=== PATIENT | male | born 1955 | race Caucasian/White ===

== ENCOUNTER 2025-02-09 08:08 | Day surgery (SDC) | payer OTHER, SELFPAY ==
[2025-02-01 07:19] VITALS: BMI 41.2
[2025-02-01 07:54] LABS: INR 1.13; PT 14.8 Sec (11.4-14.6)
[2025-02-01 08:02] LABS: Hematocrit 44.5 % (39.0-52.0); Hemoglobin 15.2 g/dL (13.0-18.0); Mean Corp Hgb Conc. 34.2 g/dL (33.0-37.0); Mean Corpuscular Volume 85.6 fL (80.0-94.0); Nucleated Red Blood Cells % 0 % (-); Platelet Count 175 10^3/uL (130-400); Red Cell Dist. Width 13.7 % (11.5-14.5)
[2025-02-01 08:16] LABS: ALT (SGPT) 21 U/L (0-50); AST (SGOT) 19 U/L (17-59); Albumin 4.7 g/dl (3.5-5.0); Alkaline Phosphatase 60 U/L (38-126); Blood Urea Nitrogen 21 mg/dl (9-20); Calcium 9.6 mg/dl (8.4-10.2); Carbon Dioxide 29 mmol/L (22-30); Chloride 104 mmol/L (98-107); Estimated Creatinine Clearance 85 ml/min; Glucose 111 mg/dl (70-99); Magnesium 2.2 mg/dl (1.6-2.3); Potassium 4.0 mmol/L (3.5-5.1); Sodium 140 mmol/L (135-145); Total Protein 7.6 g/dl (6.3-8.2); eGFR > 60.00
--- NOTE | 2025-02-01 08:50 | HPS.HSE ---
Family Physician
-
Family Physician: Celestino Montgomery, DO
Chief Complaint
-
Persistent atrial fibrillation.
History of Present Illness
The patient is a 69 year old morbidly obese, male presenting today for persistent atrial fibrillation. He does report a history of exertional shortness of breath, fatigue, and palpitations secondary to this diagnosis. He previously
underwent a cardioversion in July and August of this year. Unfortunately, his arrhythmia returned soon after these procedures. He is on current pharmacological therapy with Metoprolol Succinate. He does report compliance with Eliquis for oral
anticoagulation due to a [id number] of 3. He is interested in pursuing pulmonary vein isolation for more definitive arrhythmia management. He denies any complaints today such as chest pain, shortness of breath at rest, nausea, vomiting, diarrhea,
lightheadedness, dizziness, cough, sore throat, or fever.
Medical History
Past Medical History
Past Medical History: Reports Other
Additional Past Medical History:
1. Persistent atrial fibrillation, status post cardioversion 07/2024 and 08/2024; pharmacological therapy with Metoprolol Succinate and oral anticoagulation with Eliquis.
2. Labile hypertension.
3. Dyslipidemia.
4. Congestive heart failure, preserved ejection fraction.
5. Venous varicosities.
6. Mild-moderate aortic stenosis.
7. Moderate mitral regurgitation.
8. Obstructive sleep apnea, compliant with CPAP.
9. GERD.
10. Colon polyps.
11. Hemorrhoids.
12. Hepatic steatosis.
13. Bilateral upper extremity tremor.
14. Vertigo.
15. Degenerative disc disease.
16. BPH.
17. Bilateral gynecomastia.
18. Gout.
19. Skin cancer, status post Mohs.
20. Eczema.
21. Anxiety.
22. Impaired fasting glucose.
23. Morbid obesity, BMI 41.2.
24. Remote history of tobacco abuse.
25. Daily alcohol.
26. Cannibis dependence.
Past Surgical History: Reports Other
Additional Past Surgical History:
1. Cardioversion x2.
2. Right Achilles tendon repair.
3. Mohs.
4. Tonsillectomy and uvulectomy.
5. Dental extraction.
6. Colonoscopy x2.
7. Endoscopy x2.
Social History
Tobacco: Former Smoker (He is a former 1 pack per day cigarette smoker who quit tobacco altogether remotely. )
Alcohol: Daily (He reports drinking 2-3 beers a day. )
Drug: Marijuana (He uses this for both medical and recreational purposes daily. )
Living: Alone (in a 1 story home. )
Family History
Family History: Not pertinent
Allergies / Home Medications
Allergy/Medication List:
Home medications:
1. Eliquis 5 mg p.o. twice a day.
2. Duloxetine 60 mg p.o. daily.
3. Furosemide 40 mg p.o. daily.
4. Ibuprofen 400 mg p.o. every 6 hours.
5. Lovastatin 40 mg p.o. daily.
6. Metoprolol Succinate 25 mg p.o. twice a day.
7. Spironolactone 25 mg p.o. daily.
8. Tamsulosin 0.4 mg p.o. twice a day.
Allergies: Erythromycin.
Review of Systems
-
A 12 point ROS was completed and negative except as noted: Yes
Physical Exam
Vital Signs
Blood pressure 144/96. Heart rate 85. Respirations 18. Pulse ox 96% on room air.
Height 5 feet, 10 inches. Weight 130.1 kg. BMI 41.2.
Physical Exam
General: Well Developed, Well Nourished and No Apparent Distress
HEENT: NormoCephalic, Moist mucous membranes, Atraumatic and PERRLA
Respiratory: Clear
Cardiac: Irregular Rhythm
GI: Soft, Non Tender, Non Distended and Other (Morbidly obese. )
Musculoskeletal: Normal Gait & Station and Other (Non-pitting edema of bilateral lower extremities. Mild tremor of bilateral upper extremities. )
Skin: Warm and Dry
Neuro: AO x 3 and Nonfocal/grossly intact
Laboratory Results
-
02/01/25 07:29
02/01/25 07:
Laboratory Results
PT 14.8 Sec (11.4-14.6) H 02/01/25:
INR 1.13 02/01/25:
Total Bilirubin 1.3 mg/dl (0.2-1.3) 02/01/25:
AST 19 U/L (17-59) 02/01/25:
ALT 21 U/L (0-50) 02/01/25:
Alkaline Phosphatase 60 U/L (38-126) 02/01/25:
Magnesium 2.2.
Type and screen O positive.
EKG 02/01/2025: Atrial fibrillation. Inferior infarct, age undetermined.
Chest CT 02/01/2025: Normal, conventional pulmonary venous anatomy. No left atrial filling defect/thrombus is identified.
Echocardiogram 06/22/2024: Mild concentric LVH. Ejection fraction is 53%. Mild-moderate increased LV size. Mildly dilated right atrium. Mild-moderate aortic stenosis. Moderate mitral regurgitation. RVSP 25 mmHg. Study done in atrial fibrillation.
Impression/Plan
-
IMPRESSION/PLAN:
1. Persistent atrial fibrillation: The patient is in need of a pulmonary vein isolation with Dr. Jose Maria Tavares on 02/09/2025. The benefits and risks of the procedure have been explained to the patient. The patient understands these risks and wishes
to proceed. He will not be required to undergo a pre-procedural transesophageal echocardiogram as he has been compliant with his home oral anticoagulation. He is aware to continue Eliquis uninterrupted prior to his ablation. He will take no
medications the morning of his procedure.
[2025-02-09] VITALS (13 sets, daily range): BP systolic 122–154; BP diastolic 80–106
--- NOTE | 2025-02-09 10:34 | ITS.CL.ABL ---
Weatherization Technician - Ablation
Ablation
Procedure Report:
Primary Desk Operator: Dr. Diaz Solomon
Procedure Date: 02/09/2025
Patient History:
Patient is a pleasant 69-year-old male with a past medical history significant for obesity aortic stenosis heart failure with preserved ejection fraction, hypertension, sleep apnea, alcohol use, THC use, degenerative disc disease, and symptomatic
persistent atrial fibrillation.
See H&P for complete details.
Indication:
Symptomatic persistent atrial fibrillation
Heart failure with preserved ejection fraction
Arrhythmia Specific History:
Prior Medical Therapies for Rate and Rhythm Control:
X Beta-camille
[ ] Calcium channel-camille
[ ] Amiodarone
[ ] Dronederone
[ ] Sotalol
[ ] Flecainide
[ ] Dofetilide
[ ] Options limited by bradycardia
[ ] Options limited by comorbid renal disease
Prior Procedural Therapies for AF/AFL:
X Cardioversion
[ ] Pulmonary Vein Isolation
[ ] Posterior Wall Isolation
[ ] Additional lines (Specify)
[ ] Surgical Irwin-MAZE or PVI (Specify)
Procedure Performed:
X AF ablation procedure (96245) -- includes LA/CS pacing, trans-septal, 3D mapping, + ICE
[ ] +IV drug (76753)
[ ] +Other Arrhythmia (45825)
X +Other AF Line/ablation (32231) x2; floor line roof line, posterior wall isolation
Risks and expected recovery has been explained in detail. Alternative options have been explored, and in a shared-decision making fashion we have decided that this was the most appropriate procedure.
Method
NPO status confirmed. Grounding pad applied. Defibrillator pads applied. Continuous surface ECG, pulse oximetry, and blood pressure were monitored. Procedure was performed under general anesthesia, with anesthesia services.
Both groins were clipped, prepped with Chloraprep, and draped in sterile fashion. Time out was called. Local anesthesia administered with bupivacaine. The right femoral vein was accessed for catheter placement, using ultrasound guidance (images
saved to record), micro-puncture needle/wire, and modified seldinger technique. 3 sheaths were placed. The following catheters were used:
[ ] Tacticath SE (D/F Curve) ablation catheter
X Viewflex 9Fr ICE catheter
X Inquiry decapolar 6Fr diagnostic catheter
[ ] CRD Hex 6Fr
X FlexCath Contour 10 Fr with PulseSelect PFA Catheter
X Advisor HD Grid Mapping Catheter, SE
[ ] Acuson AcuNav 8 Fr ICE catheter
[ ]Other: [ ]
Intracardiac ultrasound (ICE) was carefully advanced into the right atrium to guide sheath placement over a J-wire, catheter placement, guide trans-septal puncture, identify potential complications, identify anatomic structures and ensure proper
contact between ablation catheter and tissue.
Heparin was given prior to trans-septal puncture. Heparin was given to achieve and maintain a target ACT of 300-400 seconds throughout the procedure.
Trans-septal access was performed under ICE guidance. The trans-septal puncture was performed with a SafeSept wire through a Brockenbrough needle assembly through the steerable sheath. The wire was visualized as it entered the LSPV and system
advanced under ICE guidance and fluoroscopy into the LA. The Brockenbrough needle assembly, SafeSept wire and sheath dilator were removed under negative pressure. LA pressure was measured and recorded.
ICE and 3D mapping was performed to identify relevant cardiac structures. A careful 3D map was created to assess for regions of low-voltage and abnormal electrogram signals using HD grid mapping catheter and PulseSelect catheter. Additional mapping
was performed as outlined below.
Prior to ablation, glycopyrrolate was provided. PulseSelect catheter was advanced over J-wire to the ostium of each vein. Pulmonary vein isolation was performed with ostial and antral lesions in a circumferential manner. Contact was visualized via
EAM, ICE, fluoroscopy, and EGM signals.
After accomplishing pulmonary venous isolation, mapping identified additional areas likely to be extra PV contributors to atrial fibrillation. These areas demonstrated patchy low voltage as well as complex fractionated electrograms. These areas can
be sites for the formation of rotors which can drive and maintain atrial fibrillation. These areas are known to be significant contributors to initiation and perpetuation of atrial fibrillation.
Additional energy applications/additional ablation sets targeted extra PV contributors to atrial fibrillation.
Targets for additional PFA ablation included: LA posterior wall targeted with pulsed electric field energy isolating the posterior wall of the left atrium. Posterior wall isolation was performed by anchoring the J-wire within the pulmonary vein and
placing the PulseSelect catheter in contact posterior wall as visualized by aforementioned methods.
After ablation of the posterior wall, targets remained including:
- Inferior LA floor
- Anterior LA roof
- The ridge of tissue between the left atrial appendage and the left sided pulmonary veins (Ligament of Kody)
These areas were ablated using pulsed electric field energy eliminating the extra PV contributors to atrial fibrillation.
Following completion of ablation lesions, sinus rhythm was restored with a 200J synchronized DCCV and a post-ablation voltage/activation map was performed in sinus rhythm. Entrance and exit block were confirmed for each vein and the posterior wall.
Catheter and sheath were removed from the left atrium and post-ablation intracardiac echo evaluation was consistent with pre-ablation with no changes and no pericardial effusion and there is no left atrial thrombus or left ventricle thrombus seen.
Electrophysiology study was performed. Hemostasis was obtained with Vascade for each sheath and with manual pressure. Protamine was used for reversal.
Estimated Blood Loss
5 mL
Complications
None
Fluoroscopy: 2.4 minutes; 30.47 mGy; DAP 3.30
LA Pressure: Pre18 mmHg, post 19 mmHg
Baseline Intervals:
Rhythm: AF
QRS: 94 ms
QT: 377 ms
Post-Procedure Intervals:
MI: 200 ms
QRS: 95 ms
QT: 474 ms
QTc: 442 ms
AVWB: 400 ms
AVNERP: 600/330 ms
AERP: 600/230 ms
Recommendations
- Bedrest with straight-leg precautions as ordered
- Anticipate same day discharge if patient meeting clinical metrics
- Resume home medications as indicated
- Ok to resume anticoagulation tonight if patient and groin sites stable
- Plan for follow-up in office as scheduled
Jose Maria Tavares DO, FACC, RS
Clinical Cardiac Alignment Technician
cc: Dr. Diaz Solomon; Dr. Celestino Montgomery
[2025-02-09 11:12] LABS: ACT-LR - POC 284 Seconds (116-155)
[2025-02-09 11:56] LABS: ACT-LR - POC 380 Seconds (116-155)
[2025-02-09 12:10] LABS: ACT-LR - POC 326 Seconds (116-155)
[2025-02-09 12:19] LABS: ACT-LR - POC 195 Seconds (116-155)
--- NOTE | 2025-02-09 14:52 | W.PN.UPDATE ---
Update Note
Progress Note Update
69 yo WM s/p PVI (same day). He denies cp, sob, dena diet, voiding, EKG SR, R fem site vascade c/d/i, soft. He will resume Eliquis and continue metoprolol. Activity restrictions reviewed. He will f/u Dr. Solomon in 3 mo. He is for d/c home after 3p.
He will resume lasix at home tonight as O2 sats 88% at time of d/c, does not appear in distress.
== END 2025-02-09 15:10 | disposition home or self-care (01) ==
LOC: CATH 08:08
PROVIDERS: ATTENDING PHYSICIAN Internal Medicine Cardiovascular Disease; FAMILY PHYSICIAN Student in an Organized Health Care Education/Training Program; OTHER PHYSICIAN Internal Medicine Cardiovascular Disease
DX: I48.19 Other persistent atrial fibrillation (principal); E66.01 Morbid (severe) obesity due to excess calories; E78.5 Hyperlipidemia, unspecified; F12.90 Cannabis use, unspecified, uncomplicated; F41.9 Anxiety disorder, unspecified; G47.33 Obstructive sleep apnea (adult) (pediatric); I11.0 Hypertensive heart disease with heart failure; I08.0 Rheumatic disorders of both mitral and aortic valves; I45.10 Unspecified right bundle-branch block; I50.32 Chronic diastolic (congestive) heart failure; K76.0 Fatty (change of) liver, not elsewhere classified; M10.9 Gout, unspecified; Z68.41 Body mass index [BMI] 40.0-44.9, adult; Z87.891 Personal history of nicotine dependence; Z79.01 Long term (current) use of anticoagulants; N40.0 Benign prostatic hyperplasia without lower urinary tract symptoms; Z79.899 Other long term (current) drug therapy; Z79.1 Long term (current) use of non-steroidal anti-inflammatories (NSAID); Z85.828 Personal history of other malignant neoplasm of skin; Z86.0100 Personal history of colon polyps, unspecified; Z87.19 Personal history of other diseases of the digestive system; Z88.1 Allergy status to other antibiotic agents; Z90.89 Acquired absence of other organs; R73.01 Impaired fasting glucose; F12.20 Cannabis dependence, uncomplicated; R42 Dizziness and giddiness; L30.9 Dermatitis, unspecified; N62 Hypertrophy of breast
CPT/HCPCS: C1732; C1894; C1730; C1769; C1766; C1733; 36415; 75572; 80053; 83735; 85025; 85347; 85610; 86850; 86900; 86901; 93005; 93656; 93657; C1760; Q9967

== ENCOUNTER 2025-04-01 09:07 | Day surgery (SDC) | payer OTHER, SELFPAY ==
[2025-04-01 09:54] VITALS: BMI 42.0
--- NOTE | 2025-04-01 10:33 | ITS.CL.CARDI ---
Oral Surgery Physician - Cardioversion
Cardioversion
Procedure Report:
Procedure: Direct current electrical cardioversion
Pre-operative diagnosis: Persistent atrial flutter
Post-operative diagnosis: Persistent atrial flutter status post DC cardioversion to sinus rhythm
Anesthesia: MAC
Attending Physician: Lyle Cheung MD
Procedure Description: The patient was brought to the electrophysiology laboratory in the fasting state. Adherence to anticoagulation regimen was confirmed. Informed consent was obtained from the patient prior to the start of the procedure.
Electrodes were placed on the patient and connected to an external defibrillator. Monitoring of blood pressure, ECG tracings, and pulse oximetry was initiated. The pads were applied to the patient in the anterior and posterior positions. The patient
was sedated by the anesthesiologist. A 200 joule biphasic synchronized shock was delivered to the patient under MAC anesthesia. Sinus rhythm was successfully restored. The patient recovered uneventfully from MAC anesthesia. There were no immediate
post-procedure complications. The patient left the lab in good condition. The attending physician was present throughout the entire procedure.
Impression: Successful direct current cardioversion with restorationism of sinus rhythm after one 200 joule biphasic synchronized shock.
== END 2025-04-01 11:08 | disposition home or self-care (01) ==
LOC: CATH 09:07
PROVIDERS: ATTENDING PHYSICIAN Internal Medicine Cardiovascular Disease; FAMILY PHYSICIAN Student in an Organized Health Care Education/Training Program
DX: I48.19 Other persistent atrial fibrillation (principal); I25.2 Old myocardial infarction; I48.92 Unspecified atrial flutter; I45.10 Unspecified right bundle-branch block; I49.1 Atrial premature depolarization
CPT/HCPCS: 92960; 93005